=== PATIENT | male | born 1965 | race Caucasian/White ===

== ENCOUNTER 2019-08-30 18:12 | Inpatient (IN) ==
[2019-08-30] MEDS ORDERED: Naloxone 0.4 MG/ML INJ IVP PRN (21:16)
[2019-08-30 21:30] LABS: Bilirubin,Urine Negative (Negative); Blood,Urine Moderate (Negative); Clarity,Urine Cloudy (Clear); Color,Urine Yellow (Yellow); Glucose,Urine (UA) Normal (Normal); Ketones,Urine Negative (Negative); Leukocyte Esterase,Urine Large (Negative); Nitrite,Urine Negative (Negative); Protein,Urine 30 mg/dL (Neg-Trace); Specific Gravity,Urine 1.012 (1.010-1.025); Urobilinogen,Urine Normal (Normal)
[2019-08-30 21:32] LABS: Bacteria,Urine None Seen per hpf (None-Few); Hyaline Casts,Urine None Seen per lpf (None-Few); Squamous Epithelial Cell,Urine Few per lpf (None-Few); WBC,Urine TNTC per hpf (0-3)
[2019-08-30 23:06] LABS: Basophils # 0.1 K/mcL (0.0-0.2); Basophils % 0.6 %; Eosinophils % 0.2 %; Hematocrit 25.9 % (37.5-50.1); Hemoglobin 8.3 g/dL (12.9-16.9); Immature Granulocytes % 0.6 % (0-4); Lymphocytes # 1.2 K/mcL (0.6-4.6); Lymphocytes % 12.1 %; Mean Corpuscular Hemoglobin 30.3 pg (28.0-33.3); Mean Corpuscular Volume 94.5 fL (83.0-100.0); Mean Platelet Volume 11.2 fL (9.4-12.4); Monocytes # 0.3 K/mcL (0.0-1.3); Monocytes % 3.5 %; Neutrophils # 8.2 K/mcL (1.6-8.9); Platelet Count 113 K/mcL (140-400); Red Blood Count 2.74 M/mcL (4.19-5.50); Red Cell Distribution Width 15.1 % (11.5-14.5); White Blood Count 9.8 K/mcL (4.3-11.1)
[2019-08-30 23:12] LABS: VBG HCO3 23 mEq/L (21-27); VBG PCO2 48 mmHg (41-51); VBG PH 7.29 pH Units (7.32-7.42); VBG PO2 51 mmHg (25-50)
[2019-08-30 23:16] LABS: INR 1.8; Prothrombin Time 20.2 Seconds (9.4-12.1)
[2019-08-30 23:30] LABS: Albumin 3.4 g/dL (3.5-5.7); Albumin/Globulin Ratio 1.1 (1.1-2.2); Bilirubin,Total 1.1 mg/dL (0.3-1.0); Globulin 3.2 g/dL (2.4-3.5); Magnesium 1.6 mg/dL (1.6-2.6); Phosphorous 4.7 mg/dL (2.7-4.5); Potassium 4.1 mEq/L (3.5-5.1); Total Protein 6.6 g/dL (6.4-8.9)
[2019-08-30 23:43] LABS: Thyroid Stimulating Hormone 0.612 mcIU/mL (0.340-5.600)
[2019-08-31] MEDS: Norepinephrine 4 MG in 0.9 % Sodium Chloride 250 ML IVC SCH ×3 (00:32→14:42)
[2019-08-31] MEDS ORDERED: Acetaminophen IV 1,000 MG/100 ML INFUS..BTL IVPB ONE (02:36)
[2019-08-31 04:17] LABS: Basophils # 0.1 K/mcL (0.0-0.2); Basophils % 0.7 %; Eosinophils % 0.3 %; Hematocrit 25.6 % (37.5-50.1); Hemoglobin 8.7 g/dL (12.9-16.9); Immature Granulocytes % 0.6 % (0-4); Lymphocytes # 1.1 K/mcL (0.6-4.6); Lymphocytes % 8.6 %; Mean Corpuscular Hemoglobin 30.6 pg (28.0-33.3); Mean Corpuscular Volume 90.1 fL (83.0-100.0); Monocytes # 0.4 K/mcL (0.0-1.3); Monocytes % 3.1 %; Neutrophils # 10.6 K/mcL (1.6-8.9); Platelet Count 151 K/mcL (140-400); Red Blood Count 2.84 M/mcL (4.19-5.50); Segmented Neutrophils % 86.7 %; White Blood Count 12.2 K/mcL (4.3-11.1)
[2019-08-31 04:38] LABS: Potassium 3.8 mEq/L (3.5-5.1)
[2019-08-31 04:42] LABS: Troponin I 0.05 ng/mL (< 0.04)
[2019-08-31] MEDS ORDERED: Calcium Gluconate 1gm/50mL 1 GM/50 ML BAG IVPB ONE (04:47)
[2019-08-31] MEDS ORDERED: Meropenem 1,000 MG in Water for inj. (sterile) 20 ML IVP SCH (06:00)
[2019-08-31] MEDS ORDERED: Aminoglycoside Consult 1 EACH MC ONE (07:28)
[2019-08-31] MEDS: Aspirin 81 MG TAB.CHEW PO SCH (07:48)
[2019-08-31 09:03] LABS: INR 1.8
[2019-08-31 11:12] LABS: Albumin 3.4 g/dL (3.5-5.7); Albumin/Globulin Ratio 1.1 (1.1-2.2); Bilirubin,Direct 0.6 mg/dL (0.0-0.2); Bilirubin,Indirect 0.5 mg/dL (0.0-1.0); Bilirubin,Total 1.1 mg/dL (0.3-1.0); Total Protein 6.4 g/dL (6.4-8.9)
[2019-08-31] MEDS ORDERED: 0.9 % Sodium Chloride 500 ML IVC ONE (13:54)
[2019-08-31] MEDS ORDERED: Cefepime HCl 2,000 MG in Water for inj. (sterile) 20 ML IVP SCH (14:00)
[2019-08-31] MEDS: *HR* Heparin 5,000 UNIT/ML VIAL SQ SCH ×2 (16:59→20:59)
[2019-09-01] MEDS: *HR* Heparin 5,000 UNIT/ML VIAL SQ SCH (03:59)
[2019-09-01] MEDS: Norepinephrine 4 MG in 0.9 % Sodium Chloride 250 ML IVC SCH (04:14)
[2019-09-01 04:30] LABS: Basophils # 0.1 K/mcL (0.0-0.2); Basophils % 0.8 %; Eosinophils # 0.4 K/mcL (0.0-0.6); Eosinophils % 6.1 %; Hematocrit 24.4 % (37.5-50.1); Immature Granulocytes % 0.2 % (0-4); Lymphocytes % 15.3 %; Mean Corpuscular HGB Conc 32.8 g/dL (31.6-35.5); Mean Corpuscular Hemoglobin 29.5 pg (28.0-33.3); Monocytes # 0.3 K/mcL (0.0-1.3); Monocytes % 5.4 %; Neutrophils # 4.5 K/mcL (1.6-8.9); Platelet Count 137 K/mcL (140-400); Red Blood Count 2.71 M/mcL (4.19-5.50); Red Cell Distribution Width 14.8 % (11.5-14.5); Segmented Neutrophils % 72.2 %; White Blood Count 6.3 K/mcL (4.3-11.1)
[2019-09-01 04:51] LABS: Calcium 8.1 mg/dL (8.6-10.3); Potassium 3.8 mEq/L (3.5-5.1)
[2019-09-01] MEDS ORDERED: 0.9 % Sodium Chloride 250 ML ONE (08:03)
[2019-09-01] MEDS: Aspirin 81 MG TAB.CHEW PO SCH (09:26)
[2019-09-01] MEDS: Pantoprazole 40 MG VIAL IVP SCH ×2 (09:26→17:13)
[2019-09-01 10:03] LABS: INR 1.5; Prothrombin Time 17.6 Seconds (9.4-12.1)
[2019-09-01] MEDS ORDERED: *HR* Metoprolol 5 MG/5 ML VIAL IVP PRN (13:41)
[2019-09-01] MEDS: Cefepime HCl 1,000 MG in Water for inj. (sterile) 10 ML IVP SCH ×2 (14:17→19:46)
[2019-09-01 14:49] LABS: Hematocrit 24.9 % (37.5-50.1); Hemoglobin 8.2 g/dL (12.9-16.9)
[2019-09-01] MEDS: Sucralfate 1 GM TABLET PO SCH ×2 (17:13→19:46)
[2019-09-02 04:10] LABS: Eosinophils # 0.4 K/mcL (0.0-0.6); Eosinophils % 10.3 %; Hemoglobin 8.4 g/dL (12.9-16.9); Immature Granulocytes % 0.3 % (0-4); Lymphocytes # 0.9 K/mcL (0.6-4.6); Lymphocytes % 22.2 %; Mean Corpuscular HGB Conc 33.6 g/dL (31.6-35.5); Mean Corpuscular Volume 89.3 fL (83.0-100.0); Mean Platelet Volume 10.1 fL (9.4-12.4); Monocytes # 0.2 K/mcL (0.0-1.3); Monocytes % 5.9 %; Neutrophils # 2.3 K/mcL (1.6-8.9); Platelet Count 123 K/mcL (140-400); Red Cell Distribution Width 14.6 % (11.5-14.5); Segmented Neutrophils % 60.3 %; White Blood Count 3.9 K/mcL (4.3-11.1)
[2019-09-02 04:29] LABS: Calcium 8.9 mg/dL (8.6-10.3); Potassium 3.6 mEq/L (3.5-5.1)
[2019-09-02] MEDS: Pantoprazole 40 MG VIAL IVP SCH (05:48)
[2019-09-02] MEDS: Norepinephrine 4 MG in 0.9 % Sodium Chloride 250 ML IVC SCH (05:48)
[2019-09-02] MEDS: Cefepime HCl 1,000 MG in Water for inj. (sterile) 10 ML IVP SCH ×2 (08:47→19:28)
[2019-09-02] MEDS: Aspirin 81 MG TAB.CHEW PO SCH (08:47)
[2019-09-02] MEDS: Sucralfate 1 GM TABLET PO SCH ×4 (08:48→19:29)
[2019-09-02] MEDS ORDERED: dilTIAZem HCl 60 MG TABLET PO SCH ×2 (09:00→21:00)
[2019-09-02] MEDS ORDERED: Metoprolol XL (24 HR) Succ 25 MG TAB.ER.24H PO SCH (09:00)
[2019-09-02] MEDS ORDERED: Naloxone 0.4 MG/ML INJ IVP PRN (09:11)
[2019-09-02] MEDS ORDERED: *HR* Metoprolol 5 MG/5 ML VIAL IVP PRN (09:11)
[2019-09-02] MEDS ORDERED: Pantoprazole 40 MG VIAL IVP SCH (18:00)
[2019-09-02] MEDS: *HR* Amiodarone 200 MG TABLET PO SCH (19:29)
[2019-09-03 05:01] LABS: Basophils % 0.9 %; Eosinophils # 0.5 K/mcL (0.0-0.6); Eosinophils % 11.7 %; Hematocrit 27.5 % (37.5-50.1); Hemoglobin 8.9 g/dL (12.9-16.9); Immature Granulocytes % 0.2 % (0-4); Lymphocytes # 1.3 K/mcL (0.6-4.6); Lymphocytes % 30.1 %; Mean Corpuscular HGB Conc 32.4 g/dL (31.6-35.5); Mean Corpuscular Hemoglobin 30.6 pg (28.0-33.3); Mean Corpuscular Volume 94.5 fL (83.0-100.0); Mean Platelet Volume 10.3 fL (9.4-12.4); Monocytes # 0.2 K/mcL (0.0-1.3); Monocytes % 5.2 %; Neutrophils # 2.3 K/mcL (1.6-8.9); Platelet Count 142 K/mcL (140-400); Red Blood Count 2.91 M/mcL (4.19-5.50); Red Cell Distribution Width 14.4 % (11.5-14.5); Segmented Neutrophils % 51.9 %; White Blood Count 4.5 K/mcL (4.3-11.1)
[2019-09-03 05:23] LABS: Calcium 9.1 mg/dL (8.6-10.3); Potassium 3.8 mEq/L (3.5-5.1)
[2019-09-03] MEDS: Cefepime HCl 1,000 MG in Water for inj. (sterile) 10 ML IVP SCH ×2 (08:04→21:40)
[2019-09-03] MEDS: *HR* Amiodarone 200 MG TABLET PO SCH ×2 (08:05→21:40)
[2019-09-03] MEDS: Aspirin 81 MG TAB.CHEW PO SCH (08:05)
[2019-09-03] MEDS: Sucralfate 1 GM TABLET PO SCH ×4 (08:05→21:40)
[2019-09-03] MEDS: Metoprolol XL (24 HR) Succ 25 MG TAB.ER.24H PO SCH ×2 (08:29→21:40)
[2019-09-03] MEDS ORDERED: Metoprolol XL (24 HR) Succ 25 MG TAB.ER.24H PO SCH (09:00)
[2019-09-03] MEDS ORDERED: SODIUM CHLORIDE/NAHCO3/KCL/PEG 4,000 ML SOLN.RECON PO ONE (17:00)
[2019-09-04 01:08] LABS: Adenovirus F 40/41 PCR Not detected (Not detect); Astrovirus PCR Not detected (Not detect); C.difficile Toxin A/B Gene PCR Not detected (Not detect); Campylobacter by PCR Not detected (Not detect); Cryptosporidium by PCR Not detected (Not detect); Cyclospora cayetanensis PCR Not detected (Not detect); E. coli O157 by PCR Not detected (Not detect); Entamoeba histolytica PCR Not detected (Not detect); Enteroaggregative E.coli(EAEC) Not detected (Not detect); Enteropathogenic E.coli(EPEC) Not detected (Not detect); Enterotoxigenic E.coli (ETEC) Not detected (Not detect); Giardia lamblia PCR Not detected (Not detect); Norovirus GI/GII PCR Not detected (Not detect); Plesiomonas shigelloides PCR Not detected (Not detect); Rotavirus A PCR Not detected (Not detect); Salmonella PCR Not detected (Not detect); Sapovirus PCR Not detected (Not detect); Shig/EnteroinvasiveE coli EIEC Not detected (Not detect); Shigalike tox-prod E coli STEC Not detected (Not detect); Vibrio PCR Not detected (Not detect); Vibrio cholerae PCR Not detected (Not detect); Yersinia enterocolitica PCR Not detected (Not detect)
[2019-09-04 05:09] LABS: Hemoglobin 9.4 g/dL (12.9-16.9); Mean Corpuscular HGB Conc 32.4 g/dL (31.6-35.5); Mean Corpuscular Hemoglobin 29.7 pg (28.0-33.3); Mean Corpuscular Volume 91.5 fL (83.0-100.0); Mean Platelet Volume 10.4 fL (9.4-12.4); Platelet Count 158 K/mcL (140-400); Red Blood Count 3.17 M/mcL (4.19-5.50); Red Cell Distribution Width 14.1 % (11.5-14.5); White Blood Count 4.8 K/mcL (4.3-11.1)
[2019-09-04 05:25] LABS: Calcium 9.3 mg/dL (8.6-10.3); Potassium 4.1 mEq/L (3.5-5.1)
[2019-09-04] MEDS ORDERED: Cefepime HCl 2,000 MG in 0.9 % Sodium Chloride Mini Bag 100 ML IVPB SCH (07:10)
[2019-09-04] MEDS: Sucralfate 1 GM TABLET PO SCH (07:42)
[2019-09-04] MEDS: Aspirin 81 MG TAB.CHEW PO SCH (07:42)
[2019-09-04] MEDS: *HR* Amiodarone 200 MG TABLET PO SCH (07:42)
[2019-09-04] MEDS: Metoprolol XL (24 HR) Succ 25 MG TAB.ER.24H PO SCH (07:42)
[2019-09-04] MEDS ORDERED: Sucralfate 1 GM TABLET PO SCH (11:30)
[2019-09-04 15:00] VITALS: BP 94/60
[2019-09-04] MEDS ORDERED: Sennosides/Docusate Sodium TABLET PO SCH (21:00)
[2019-09-05] MEDS ORDERED: ARIPiprazole 10 MG TABLET PO SCH (09:00)
[2019-09-05] MEDS ORDERED: Sodium Ferric Gluconat/Sucrose 125 MG in 0.9 % Sodium Chloride 100 ML IVPB SCH (09:00)
== END 2019-09-04 16:27 | disposition left against medical advice (07) | DRG 871 ==
LOC: SUATTDRO 20:47 → ICNU 20:47 → 2ANU 09-03 20:52
PROVIDERS: ADMIT Internal Medicine; ATTEND Internal Medicine